=== PATIENT | female | born 1985 | race Caucasian/White ===

== ENCOUNTER 2016-11-19 00:30 | Emergency (ER) | payer OTHER ==
[~2016-11-19] VITALS: Ht 160 cm; Wt 92.5 kg
[~2016-11-19 00:30] MED LIST: PRENATAL VITAMI1 TA4 PO; ZOFRAN ODT4 M1 SL; ZOFRAN ODT4 MG PO
--- NOTE | 2016-11-19 00:39 | ED GI/GU/ABDOMINAL COMPLAINT ---
History of Present Illness General Chief Complaint: Abdominal Pain/Flank Pain Stated Complaint: ABD PAIN X2 DAYS Source: patient Exam Limitations: no limitations Vital Signs & Intake/Output Vital Signs & Intake/Output Vital Signs Date Time Temp Pulse Resp B/P Pulse O2 O2 Flow FiO2 Ox Delivery Rate 11/19 0215 97.5 81 18 124/66 99 Room Air 11/19 0118 Room Air 11/19 0038 96.8 96 18 126/63 98 Room Air Allergies Coded Allergies: fluconazole (From Diflucan) (Intermediate, HIVES 11/19/16) oxycodone (From Percocet) ("I DON'T LIKE THE FEELING OF IT" 11/19/16) Reconcile Medications Omeprazole Magnesium (Prilosec Otc) 20 MG TABLET.DR 1 TAB PO DAILY STOMACH BURNING PAIN Ondansetron (Zofran Odt) 4 MG TAB.RAPDIS 1 TAB SL 4 TIMES/DAY PRN NAUSEA Triage Nurses Notes Reviewed? yes ? n Is pt currently ? No Onset: Gradual Duration: day(s):, waxing and waning Timing: recent history Quality/Severity: cramping Location: epigastric, generalized abdomen Radiation: no radiation Activities at Onset: none Prior Abdominal Problems: similar symptoms Modifying Factors: Worsens With: palpation. Associated Symptoms: abdominal pain HPI: 31-year-old woman, h/o appendicitis presents with 2 days of mid epigastric and diffuse abdominal discomfort. She notes that on Saturday night she ate some [employer]. On Saturday morning she developed crampy mid epigastric and diffuse abdominal pain. She felt nauseous. She had normal bowel movements. She did not take any medicine. She had no episodes of vomiting. She had no fever chills dysuria or vaginal discharge shortness of breath or chest pain. She is otherwise well. Past History Travel History Traveled to [place] past 21 day No Medical History Any Pertinent Medical History? 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 No Review of Systems Review of Systems Constitutional: Reports: no symptoms. EENTM: Reports: no symptoms. Respiratory: Reports: no symptoms. Cardiovascular: Reports: no symptoms. GI: Reports: no symptoms. Genitourinary: Reports: no symptoms. Musculoskeletal: Reports: no symptoms. Skin: Reports: no symptoms. Neurological/Psychological: Reports: no symptoms. Hematologic/Endocrine: Reports: no symptoms. Immunologic/Allergic: Reports: no symptoms. All Other Systems: Reviewed and Negative Physical Exam Physical Exam General Appearance: well developed/nourished, no apparent distress Head: atraumatic, normal appearance Eyes: Bilateral: normal appearance. Ears, Nose, Throat, Mouth: hearing grossly normal Neck: normal inspection, supple, full range of motion Respiratory: normal breath sounds, chest non-tender, no respiratory distress, quiet respiration Cardiovascular: regular rate/rhythm Gastrointestinal: normal bowel sounds, soft, mild midepigastric tenderness. No rebound or guarding Back: normal inspection, normal range of motion Extremities: normal range of motion Neurologic/Psych: no motor/sensory deficits, awake, alert, oriented x 3 Skin: intact, normal color, warm/dry Core Measures ACS in differential dx? No Severe Sepsis Present: No Septic Shock Present: No Progress Differential Diagnosis: food poisoning versus gastritis versus reflux versus viral syndrome versus other. Plan of Care: Orders Procedure Date/time Status URINALYSIS 11/19 31 Complete LIPASE 11/19 31 Complete HEPATIC FUNCTION PANEL 11/19 31 Complete HUMAN BETA HCG SCREEN 11/19 31 Complete CBC WITHOUT DIFFERENTIAL 11/19 31 Complete BASIC METABOLIC PANEL 11/19 31 Complete AMYLASE 11/19 31 Complete Laboratory Tests 11/19/16 0111: Anion Gap 11, Estimated GFR > 60, BUN/Creatinine Ratio 13.3, Glucose 90, Calcium 8.9, Total Bilirubin 0.4, Direct Bilirubin 0.3, AST 21, ALT 27, Alkaline Phosphatase 75, Total Protein 7.0, Albumin 4.0, Amylase 45, Lipase 33, Total Beta HCG NEGATIVE, CBC w Diff NO MAN DIFF REQ, RBC 4.99, MCV 74.3 L, MCH 24.4 L, RDW 14.6 H, MPV 7.9, Gran % 59.9, Lymphocytes % 25.3, Monocytes % 6.9, Eosinophils % 7.3 H, Basophils % 0.6, Absolute Granulocytes 4.4, Absolute Lymphocytes 1.9, Absolute Monocytes 0.5, Absolute Eosinophils 0.5, Absolute Basophils 0, PUBS MCHC 32.8 L 11/19/16 0055: Urine Color YEL, Urine Clarity CLEAR, Urine pH 6.0, Ur Specific [place] 1.020, Urine Protein NEG, Urine Ketones TRACE H, Urine Nitrite NEG, Urine Bilirubin NEG, Urine Urobilinogen 0.2, Ur Leukocyte Esterase NEG, Ur Microscopic EXAM NOT REQUIRED, Urine Hemoglobin NEG, Urine Glucose NEG Initial ED EKG: none Departure Departure Disposition: HOME OR SELF CARE Condition: Stable Clinical Impression Primary Impression: Abdominal pain Referrals: ANGIE HUGGINS,RENATA Goldsmith (PCP/Family) Departure Forms: Customer Survey General Discharge Information Prescriptions: Current Visit Scripts Ondansetron (Zofran Odt) 1 TAB SL 4 TIMES/DAY PRN NAUSEA #10 TAB Ref 1 Omeprazole Magnesium (Prilosec Otc) 1 TAB PO DAILY #30 TAB Comments 11/19/16, 2:00... pt feeling better after iv fluids. Labs benign. Repeat exam: abdomen is non tender to palpation. We discussed ct scan. Given that she is feeling better, ct scan deferred. I counseled close follow up and return if her symptoms return.
[2016-11-19 01:25] LABS: ABSOLUTE BASOPHIL COUNT 0 /CUMM (0.0-0.2); ABSOLUTE EOSINOPHIL COUNT 0.5 /CUMM (0.0-0.7); ABSOLUTE GRANULOCYTE CT 4.4 /CUMM (1.4-6.5); ABSOLUTE LYMPH COUNT 1.9 /CUMM (1.2-3.4); ABSOLUTE MONOCYTE COUNT 0.5 /CUMM (0.10-0.60); BASOPHIL % 0.6 % (0.0-2.0); EOSINOPHIL % 7.3 % (0-5); GRANULOCYTE % 59.9 % (42.2-75.2); MEAN CORPUSCULAR HGB 24.4 PG (27.0-31.0); MEAN CORPUSCULAR HGB CONC 32.8 G/DL (33.0-37.0); MEAN CORPUSCULAR VOLUME 74.3 FL (81.0-99.0); MEAN PLATELET VOLUME 7.9 FL (7.4-10.4); PLATELET COUNT 209 /CUMM (130-400); RBC DISTRIBUTION WIDTH 14.6 % (11.5-14.5); RED BLOOD CELL CT 4.99 /CUMM (4.20-5.40); WHITE BLOOD CELL COUNT 7.4 /CUMM (4.8-10.8)
[2016-11-19] MEDS ORDERED: ZOFRAN ODT4 M1 SL (02:07)
[2016-11-19] MEDS ORDERED: PRILOSEC OTC20 M1 PO (02:07)
[2016-11-19 02:15] VITALS: BP 124/66
== END 2016-11-19 02:26 ==
LOC: ERH 00:30
PROVIDERS: Pediatrics
DX: R10.13 Epigastric pain (principal)
CPT/HCPCS: 81003; 96361; 96374; 96375; J1885; J2405

== ENCOUNTER 2018-07-13 10:41 | Emergency (ER) | payer OTHER ==
[~2018-07-13] VITALS: Ht 165.1 cm; Wt 93.0 kg
[~2018-07-13 10:41] MED LIST changes: +PRENATAL TABLE1 EAC2 PO; +PRILOSEC OTC20 M1 PO
[2018-07-13 11:35] LABS: ABSOLUTE BASOPHIL COUNT 0 /CUMM (0.0-0.2); ABSOLUTE EOSINOPHIL COUNT 0.7 /CUMM (0.0-0.7); ABSOLUTE GRANULOCYTE CT 5.3 /CUMM (1.4-6.5); ABSOLUTE LYMPH COUNT 2.3 /CUMM (1.2-3.4); ABSOLUTE MONOCYTE COUNT 0.3 /CUMM (0.10-0.60); BASOPHIL % 0.4 % (0.0-2.0); EOSINOPHIL % 7.6 % (0-5); GRANULOCYTE % 61.4 % (42.2-75.2); HEMATOCRIT 38.7 % (37-47); MEAN CORPUSCULAR HGB 23.2 PG (27.0-31.0); MEAN CORPUSCULAR HGB CONC 31.9 G/DL (33.0-37.0); MEAN CORPUSCULAR VOLUME 72.8 FL (81.0-99.0); MEAN PLATELET VOLUME 7.6 FL (7.4-10.4); PLATELET COUNT 323 /CUMM (130-400); RBC DISTRIBUTION WIDTH 15.5 % (11.5-14.5); RED BLOOD CELL CT 5.32 /CUMM (4.20-5.40); WHITE BLOOD CELL COUNT 8.7 /CUMM (4.8-10.8)
--- NOTE | 2018-07-13 13:26 | ED GENERAL ADULT ---
History of Present Illness General Chief Complaint: General Adult Stated Complaint: LOW BODY TEMP, MUSCLE ACHES Source: patient Exam Limitations: no limitations Vital Signs & Intake/Output Vital Signs & Intake/Output Vital Signs Date Time Temp Pulse Resp B/P B/P Pulse O2 O2 Flow FiO2 Mean Ox Delivery Rate 07/13 1344 98.0 61 14 113/75 100 Room Air 07/13 1136 98 Room Air ED Intake and Output 07/14 0000 07/13 1200 Intake Total Output Total 1 Balance -1 Output, Urine 1 Patient 205 lb Weight Weight Estimated Measurement Method Allergies Coded Allergies: fluconazole (From Diflucan) (Intermediate, HIVES 11/19/16) oxycodone (From Percocet) ("I DON'T LIKE THE FEELING OF IT" 11/19/16) Reconcile Medications Vit No.130/Iron/FA ( Tablet) 27 MG IRON-800 MCG TABLET 1 TAB PO DAILY (Reported) Triage Note: PT TO ED C/O "MUSCLE CRAMPS" ALL OVER X A FEW DAYS. STATES LOW FEVERS, BODY ACHINESS AND CHILLS. TEMP 97.4 IN TRIAGE. CURRENTLY BEING TREATED FOR EAR INFECTION WITH ABX AND EAR DROPS. Triage Nurses Notes Reviewed? yes Onset: Abrupt Duration: day(s): (2-3), constant, continues in ED Timing: single episode today Injury Environment: home Severity: mild, moderate Severity Numbers: 6 No Modifying Factors: none LMP (ages 10-50): unknown : No Patient currently breastfeeds: No HPI: 33-year-old female presents for evaluation of fatigue and muscle pains and joint pains. Patient reports symptom started 2 or 3 days ago had been persistent. She reports that she is currently being treated for a right-sided ear infection with oral and topical antibiotics. She's been on his antibiotics for the same amount of time as her symptoms have been ongoing. She states he was feeling better. She's had no fevers chest pain shortness of breath abdominal pain urinary symptoms rashes. No joint swelling. She reports the pain is worse in her lower back thighs and knees. No trauma. No numbness or tingling. She's not taking any medicine for her symptoms other than the antibiotics. Past History Travel History Traveled to [place] past 21 day No Medical History Any Pertinent Medical History? 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 No Review of Systems Review of Systems Constitutional: Reports: no symptoms. EENTM: Reports: no symptoms. Respiratory: Reports: no symptoms. Cardiovascular: Reports: no symptoms. GI: Reports: no symptoms. Genitourinary: Reports: no symptoms. Musculoskeletal: Reports: see HPI, muscle pain, muscle stiffness. Skin: Reports: no symptoms. Neurological/Psychological: Reports: no symptoms. Hematologic/Endocrine: Reports: no symptoms. Immunologic/Allergic: Reports: no symptoms. All Other Systems: Reviewed and Negative Physical Exam Physical Exam General Appearance: well developed/nourished, no apparent distress, alert, awake Head: atraumatic, normal appearance Eyes: Bilateral: normal appearance, PERRL, EOMI. Ears, Nose, Throat: normal pharynx, normal ENT inspection, hearing grossly normal Neck: normal inspection, supple, full range of motion Respiratory: normal breath sounds, chest non-tender, no respiratory distress, lungs clear Cardiovascular: regular rate/rhythm, normal peripheral pulses Peripheral Pulses: 2+ radial (R), 2+ radial (L) Gastrointestinal: soft, non-tender Back: normal inspection, normal range of motion, no vertebral tenderness Extremities: normal inspection, normal range of motion, no edema Neurologic/Psych: no motor/sensory deficits, awake, alert, oriented x 3, normal gait, normal mood/affect Skin: intact, normal color, warm/dry Lymphatic: no anterior cervical mona Core Measures ACS in differential dx? No CVA/TIA Diagnosis: No Sepsis Present: No Sepsis Focused Exam Completed? No Progress Differential Diagnoses I considered the following diagnoses in my evaluation of the patient: [Viral syndrome, otitis media, otitis externa, medication side effect, Lyme disease, dehydration, electrolyte ABN] Plan of Care: Orders Procedure Date/time Status Add-on Test (ER Only) 07/13 1246 Active CREATINE PHOSPHOKINASE 07/13 1127 Complete URINE 07/13 1120 Complete URINALYSIS 07/13 1120 Complete COMPREHENSIVE METABOLIC PANEL 07/13 112 Complete CBC WITHOUT DIFFERENTIAL 07/13 1120 Complete Laboratory Tests 07/13/18 1133: Urine Color STRAW, Urine Clarity CLEAR, Urine pH 6.0, Ur Specific [place] 1.015, Urine Protein NEG, Urine Ketones NEG, Urine Nitrite NEG, Urine Bilirubin NEG, Urine Urobilinogen 0.2, Ur Leukocyte Esterase NEG, Ur Microscopic EXAM NOT REQUIRED, Urine Hemoglobin NEG, Urine Glucose NEG, Urine Test NEGATIVE 07/13/18 1127: Anion Gap 10, Estimated GFR > 60, BUN/Creatinine Ratio 15.7, Glucose 79, Calcium 9.6, Total Bilirubin 0.4, AST 17, ALT 22, Alkaline Phosphatase 68, Creatine Kinase 69, Total Protein 7.6, Albumin 4.5, Globulin 3.1, Albumin/Globulin Ratio 1.5, CBC w Diff NO MAN DIFF REQ, RBC 5.32, MCV 72.8 L, MCH 23.2 L, MCHC 31.9 L, RDW 15.5 H, MPV 7.6, Gran % 61.4, Lymphocytes % 27.0, Monocytes % 3.6, Eosinophils % 7.6 H, Basophils % 0.4, Absolute Granulocytes 5.3, Absolute Lymphocytes 2.3, Absolute Monocytes 0.3, Absolute Eosinophils 0.7, Absolute Basophils 0, Lyme Disease Antibody Cancelled 07/13/18 112: Lyme Disease Screen Pending Patient is here for evaluation of weakness joint pains. Symptoms have been ongoing for a few days. She also is currently being treated for otitis media otitis externa with oral and topical antibiotics. Her ear is getting better. Basic blood work was obtained and is within normal limits she's afebrile here. Lyme disease testing is pending. Patient was instructed to continue the antibiotics Tylenol at appropriate as needed drink plenty of fluids follow-up with the primary care doctor discussed return precautions patient agrees the plan Initial ED EKG: none Departure Departure Disposition: HOME OR SELF CARE Condition: Stable Clinical Impression Primary Impression: Myalgia Referrals: Willie Burrows MD (PCP/Family) Additional Instructions: Continue to take the antibiotics as directed by your primary care doctor. Use Tylenol ibuprofen as needed for pain or fever. Drink plenty of fluids. Follow- up with your primary care doctor in a few days for recheck return with any concerns. Please go over all results of today's visit with your primary care doctor. Contact your primary care doctor to let them know you were here in the emergency room. There may be nonspecific findings which may not be related to your visit today here in the emergency room but may require further evaluation and chronic monitoring by your primary care doctor. If you had a laceration today the chance of foreign body always remains. You should follow-up with your primary care doctor for recheck in 3-5 days for a wound check. If you had an x-ray done there is a chance that a fracture could have been missed on initial read and you should follow-up with your primary care doctor for repeat x-rays if symptoms persist. If your blood pressure was elevated here in the emergency room please have rechecked by her primary care doctor within the next 48 hours by your primary care doctor. If you were prescribed a narcotic here in the emergency room or any type of controlled substances you're not allowed to drive while taking this medication or operate any type of heavy machinery. Narcotics can make you feel lightheaded dizziness nausea and can cause constipation. You may need to greens picker a stool softener. Thank you for choosing [facility] emergency room. Please return to the emergency room immediately if you have any other concerns worsening of symptoms. Departure Forms: Customer Survey General Discharge Information Critical Care Note Critical Care Note Critical Care Time: non-applicable
[2018-07-13 13:44] VITALS: BP 113/75
== END 2018-07-13 13:46 ==
LOC: ERH 10:41
PROVIDERS: Physician Assistant Medical
DX: M79.1 Myalgia (principal); R53.83 Other fatigue
CPT/HCPCS: 86618; 87476; 81003; 81025